=== PATIENT | male | born 1950 | race Caucasian/White ===

== ENCOUNTER 2025-03-24 13:58 | Day surgery (SDC) | payer MEDICARE ==
[2025-03-21 13:08] LABS: MEAN PLATELET VOLUME 7.7 FL (7.4-10.4); RED CELL DISTRIBUTION WIDTH 12.7 % (11.5-14.5)
[2025-03-21 13:17] LABS: APTT 27 SECONDS (22-32); INR 1.0 INR
[2025-03-21 13:24] LABS: CHOL/HDL RATIO 4.8 (0.00-4.99); CREATININE 0.93 MG/DL (0.60-1.10); LDL CHOLESTEROL 126 MG/DL (50-100); TOTAL CARBON DIOXIDE 30.3 MMOL/L (24-32); eGFR 79 ML/MIN
[~2025-03-24] VITALS: Ht 177.8 cm; Wt 104.5 kg
[2025-03-24] VITALS (8 sets, daily range): BP systolic 122–140; BP diastolic 62–72; PULSE 72–90; RESP 16; TEMP 98.3; O2SAT 93–98
[2025-03-24] MEDS ORDERED: AMLO-379 PO (14:18)
--- NOTE | 2025-03-24 14:31 | ELECTROCARDIOGRAPH REPORT ---
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 Zuly Barr Measurements Intervals [place] Rate: 85 P: 47 AK: 283 QRS: -26 QRSD: 95 T: 62 QT: 361 QTc: 430 Interpretive Statements Sinus rhythm Prolonged AK interval Probable left ventricular hypertrophy Electronically Signed On 03-24-2025 19:58:[address] Zuly Barr Please click the below link to view image of tracing.
[2025-03-24 15:12] LABS: APTT 28 SECONDS (22-32); INR 1.0 INR
[2025-03-24] MEDS ORDERED: verapamil 2.5 mg/ml inj IV ONE (15:55)
[2025-03-24] MEDS ORDERED: LIDOcaine 1% (10mg/ml) 2ml vial ONE ×2 (15:55→15:56)
[2025-03-24] MEDS ORDERED: fentaNYL/PF 50MCG/1 ML 2ML syringe ONE (15:55)
[2025-03-24] MEDS ORDERED: midazolam 1 mg/ML 2ml injection ONE ×2 (15:56→17:03)
[2025-03-24] MEDS ORDERED: heparin 1,000unit/ml 10ml vial 10 ML ONE (15:56)
[2025-03-24] MEDS ORDERED: nitroGLYCERIN 500mcg/5mL D5W 5 ML IV ONE (15:57)
[2025-03-24] MEDS ORDERED: iohexol 350 MG/ML 50ML vial IV ONE (17:10)
[2025-03-24] MEDS ORDERED: ondansetron/PF 4mg/2ml inj IV PRN (18:50)
[2025-03-24] MEDS ORDERED: HYDROcodone/acetaminophen 5mg/325mg tablet PO PRN (18:50)
[2025-03-24] MEDS ORDERED: OXAZEpam 15mg capsule PO PRN (18:50)
[2025-03-24] MEDS ORDERED: HYDROcodone/acetaminophen 10/325mg tab PO PRN (18:50)
[2025-03-25 11:53] LABS: ISTAT HGB MIX 12.9 g/dl (14.0-17.9); ISTAT Hct MIX 38 %PCV (42-52); ISTAT O2 SATURATION MIX VENOUS 69 % (60-80); ISTAT SOURCE VEN
--- NOTE | 2025-04-05 11:17 | CARDIOLOGY REPORT ---
DATE OF SERVICE: 03/24/2025 DICTATING PHYSICIAN: Zuly Barr MD CARDIAC CATHETERIZATION REPORT DATE OF STUDY: 03/24/2025 PROCEDURES: * Access to the right radial artery. * Access to the right brachial vein. * Right heart catheterization. * Right upper extremity angiography. * Selective coronary angiography. * Conscious sedation monitoring time for 30 minutes. INDICATION: * Syncope. * Aortic stenosis. PHYSICIAN: Zuly Barr MD DESCRIPTION OF PROCEDURE: After informed consent was obtained, the patient was brought to the lab where he was prepped and draped in the usual sterile fashion. A 6-F sheath was inserted into the right radial artery and a 6-Turkish sheath in the right brachial vein. Thereafter, using a Vader-Hebert catheter, the catheter was advanced via the sheath in the brachial vein to the outflow tract and into a wedge position and right-sided pressures were obtained. After removal of the Vader-Hebert catheter, using a TIG catheter, the catheter was advanced. Because of resistance encountered in the brachial artery, selective angiography of the right upper extremity was performed. The catheter was then advanced into the ascending aorta. The wire removed and the left and right coronary systems engaged and selective coronary angiography performed. HEMODYNAMICS: For the patient's hemodynamics, please refer to the event log. Pulmonary capillary wedge pressure was 8/7 with a mean of 4 mmHg. Pulmonary arterial pressure was 25/10 with a mean of 17 mmHg. Right ventricular pressure was 32/3 with a mean of 1 mmHg. Right atrial pressure was 4/4 with a mean of 1 mmHg. Pulmonary arterial saturation was 69%; AO saturation 97%. Cardiac output 5.39 liters per minute. FINDINGS: The left main coronary artery is a normal caliber vessel with mild luminal irregularities. The left anterior descending coronary artery is a medium caliber vessel with mild luminal irregularities. The circumflex coronary artery is also a medium caliber vessel with mild luminal irregularities. The right coronary artery is a normal caliber dominant vessel with mild luminal irregularities. The right upper extremity revealed a tortuosity and a loop with no significant stenosis. IMPRESSION: * Mild luminal irregularities with no significant coronary artery disease by angiography. * Normal right-sided pressures. * The patient's mean pulmonary capillary wedge pressure was 4 mmHg and mean pulmonary arterial pressure 17 mmHg. * Cardiac output was 5.39 liters per minute. Zuly Barr MD TID: [id number] RECEIPT: [id number] JOSIE/ADONAY
== END 2025-03-24 19:30 | disposition home or self-care (01) ==
LOC: SSTAY O 13:58
PROVIDERS: ATTEND Student in an Organized Health Care Education/Training Program
DX: I35.0 Nonrheumatic aortic (valve) stenosis (principal); R94.31 Abnormal electrocardiogram [ECG] [EKG]; I10 Essential (primary) hypertension; E78.00 Pure hypercholesterolemia, unspecified; Z79.899 Other long term (current) drug therapy
CPT/HCPCS: 36415; 80048; 80061; 82803; 85014; 85025; 85610; 85730; 93005; 93456; 99152; 99153; A6258; A6402; C1751; C1894; J1644; J2003; J2250; J3010; J3490; J7030; Q0163; Q9967; Z7610